=== PATIENT | female | born 1945 | race Caucasian/White ===

== ENCOUNTER 2018-02-03 01:58 | Outpatient (CLI) | payer MEDICARE, SELFPAY ==
[2018-02-03 09:44] LABS: ALT 32 U/L (12-78); AST 26 U/L (15-37); Alkaline Phosphatase 103 U/L (46-116); Anion Gap 7.7 mmol/L (3-11); BUN 8 mg/dL (7-18); Bilirubin, Total 1.5 mg/dL (0.2-1.0); CO2 29.3 mmol/L (21.0-32.0); CREATININE 0.72 mg/dL (0.55-1.02); Calcium 9.2 mg/dL (8.5-10.1); Chloride 98 mmol/L (98-107); Cholesterol 147 mg/dL (50-200); Glucose 92 mg/dL (70-100); HDL Cholesterol 72 mg/dL (40-60); LDL CHOLESTEROL 67 mg/dL (<100); Potassium 4.5 mmol/L (3.5-5.1); Sodium 135 mmol/L (136-145); Total Protein 7.3 g/dL (6.4-8.2); Triglyceride 50 mg/dL (30-150)
[2018-02-03 10:09] LABS: FREE T4 1.72 ng/dL (0.76-1.46)
== END 2018-02-03 02:18 ==
PROVIDERS: PCP Family Medicine; Visit Provider Family Medicine
DX: E78.5 Hyperlipidemia, unspecified (principal); E03.9 Hypothyroidism, unspecified
CPT/HCPCS: 36415; 80053; 80061; 83721; 84439; 84443

== ENCOUNTER 2018-03-18 12:11 | Outpatient (CLI) | payer MEDICARE, SELFPAY ==
[2018-03-18 14:30] LABS: ALT 40 U/L (12-78); AST 32 U/L (15-37); Albumin 4.2 g/dL (3.4-5.0); Alkaline Phosphatase 105 U/L (46-116); BUN 10 mg/dL (7-18); Bilirubin, Total 1.2 mg/dL (0.2-1.0); CREATININE 0.64 mg/dL (0.55-1.02); Calcium 9.2 mg/dL (8.5-10.1); Chloride 93 mmol/L (98-107); Glucose 91 mg/dL (70-100); Potassium 4.1 mmol/L (3.5-5.1); Sodium 130 mmol/L (136-145); TSH (W/Ref FT4) 14.77 uIU/mL (0.358-3.74); Total Protein 7.5 g/dL (6.4-8.2)
[2018-03-18 14:47] LABS: FREE T4 1.01 ng/dL (0.76-1.46)
== END 2018-03-18 12:31 ==
PROVIDERS: PCP Family Medicine; Visit Provider Family Medicine
DX: E78.5 Hyperlipidemia, unspecified (principal); E03.9 Hypothyroidism, unspecified
CPT/HCPCS: 36415; 80053; 84439; 84443

== ENCOUNTER 2018-05-25 00:28 | Outpatient (CLI) | payer MEDICARE, SELFPAY ==
--- NOTE | 2018-05-25 13:00 | DI.MAMMO_ITS ---
SYMPTOMS/DIAGNOSIS: SCREENING, Z12.31 MAMMOGRAM: Mammograms were interpreted according to the usual protocol including computer analysis with CAD system, tomosynthesis and C view imaging. Comparison is made with exams from 2014 through 2018. There has been decrease in breast size due to weight loss. The breasts are composed of heterogeneously dense fibroglandular tissue, breast density Category C. Biopsy marker clips are again noted in the upper subareolar region of the left breast. Scattered benign calcifications and bilateral stable circumscribed nodules are again noted. No suspicious masses or suspicious microcalcifications are seen. IMPRESSION: Category 2 C, negative mammogram with benign findings. Yearly screening mammography is recommended. SA ASSESSMENT OF FINDINGS: Negative with benign findings. Category 2. Patient will receive a letter notifying them of these results. Bi-RADS category C. The breasts are heterogeneously dense, which may obscure small masses.
== END 2018-05-25 00:48 ==
PROVIDERS: PCP Family Medicine; Visit Provider Family Medicine
DX: Z12.31 Encounter for screening mammogram for malignant neoplasm of breast (principal); N60.81 Other benign mammary dysplasias of right breast; N60.82 Other benign mammary dysplasias of left breast
CPT/HCPCS: 77063; 77067

== ENCOUNTER 2018-05-28 10:15 | Outpatient (CLI) | payer MEDICARE, SELFPAY ==
[2018-05-28 13:50] LABS: TSH (W/Ref FT4) 0.47 uIU/mL (0.358-3.74)
== END 2018-05-28 10:35 ==
PROVIDERS: PCP Family Medicine; Visit Provider Family Medicine
DX: E03.9 Hypothyroidism, unspecified (principal)
CPT/HCPCS: 36415; 84443

== ENCOUNTER 2018-08-07 00:25 | Outpatient (CLI) | payer MEDICARE, SELFPAY ==
--- NOTE | 2018-08-07 09:03 | DI.US_ITS ---
SYMPTOM/DIAGNOSIS: LT BREAST DENSE TISSUE, F/U ABNL MAMMO, R92.8 LEFT BREAST ULTRASOUND: Ultrasound examination was performed for evaluation of dense tissue. There is mild ductal prominence in the central portion of the breast. There is no discrete mass or cyst identified. CONCLUSION: Negative breast ultrasound.
== END 2018-08-07 00:45 ==
PROVIDERS: PCP Family Medicine; Visit Provider Family Medicine
DX: Z12.31 Encounter for screening mammogram for malignant neoplasm of breast (principal); R92.8 Other abnormal and inconclusive findings on diagnostic imaging of breast; N60.42 Mammary duct ectasia of left breast
CPT/HCPCS: 76642

== ENCOUNTER 2019-04-12 07:05 | Outpatient (CLI) | payer MEDICARE, SELFPAY ==
[2019-04-12 08:40] LABS: ALT 34 U/L (14-59); AST 31 U/L (15-37); Albumin 3.8 g/dL (3.4-5.0); Alkaline Phosphatase 121 U/L (46-116); BUN 9 mg/dL (7-18); Bilirubin, Total 0.9 mg/dL (0.2-1.0); CREATININE 0.61 mg/dL (0.55-1.02); Calculated LDL 71 mg/dL; Chloride 98 mmol/L (98-107); Cholesterol 149 mg/dL (<200); Glucose 90 mg/dL (74-106); HDL Cholesterol 70 mg/dL (40-60); Potassium 4.3 mmol/L (3.5-5.1); Sodium 135 mmol/L (136-145); TSH (W/Ref FT4) 0.39 uIU/mL (0.36-3.74); Triglyceride 44 mg/dL (<150)
== END 2019-04-12 07:25 ==
PROVIDERS: PCP Family Medicine; Visit Provider Family Medicine
DX: I10 Essential (primary) hypertension (principal); E03.9 Hypothyroidism, unspecified; E78.00 Pure hypercholesterolemia, unspecified
CPT/HCPCS: 36415; 80053; 80061; 84443

== ENCOUNTER 2019-05-31 01:35 | Outpatient (CLI) | payer MEDICARE, SELFPAY ==
--- NOTE | 2019-05-31 15:20 | DI.MAMMO_ITS ---
EXAM: MG MAMMO SCREENING CLINICAL HISTORY: screening, Z12.39. TECHNIQUE: Bilateral full field digital CC and MLO mammographic images were obtained with 3D tomosyn thesis and utilizing computer aided detection (CAD). COMPARISON: Available for comparison. FINDINGS: Masses/Architectural Distortion: There are scattered nodules in the breasts. There are nodular densi ties seen in the in the upper right breast on the mediolateral oblique view. This area should be fur ther evaluated with a spot compression view. Biopsy clips are again seen in the left breast. Microcalcifications: No suspicious pleomorphic-type are seen. Skin Thickening/Nipple Retraction: None. IMPRESSION: 1. Asymmetric densities in the upper right breast on the mediolateral oblique view. 2. This area should be further evaluated with a spot compression view. Ultrasound may be indicated a t that time. BI-RADS Cat 0 - Assessment Incomplete: Need additional imaging evaluation Breast Density - Category C - Heterogeneously dense The mammogram demonstrates the patient's breast tissue is dense. Dense breast tissue is very common a nd is not abnormal but dense breast tissue can make it harder to find cancer on a mammogram. Also, de nse breast tissue may increase their breast cancer risk. This information about the result of the [facility] mogram report was provided to the patient to raise their awareness. Use this report when you speak wi th the patient about their risks for breast cancer, which includes their family history. At that time , you may recommend for more screening tests (Ultrasound or MRI) as they might be useful based on the ir risk. A negative radiographic report should not delay biopsy if a dominant or clinically suspicious mass is present. Up to ten percent of cancers are not identified on mammography. A negative report may reinforce clinical impression. Adenosis and dense breasts may obscure an underlying neoplasm. False positive reports average 6 to 10%. Patient will receive a letter notifying them of these results.
== END 2019-05-31 01:55 ==
PROVIDERS: PCP Family Medicine; Visit Provider Family Medicine
DX: Z12.31 Encounter for screening mammogram for malignant neoplasm of breast (principal); R92.8 Other abnormal and inconclusive findings on diagnostic imaging of breast
CPT/HCPCS: 77063; 77067

== ENCOUNTER 2019-06-02 14:19 | Outpatient (CLI) | payer MEDICARE, SELFPAY ==
--- NOTE | 2019-06-02 13:54 | DI.US_ITS ---
EXAM: MG MAMMO SCREEN CALL BACK UNI AND US BREAST RT LIMITED CLINICAL HISTORY: F/U MAMMO, NODULAR DENSITIES RT UPPER BREAST ON MLO VIEW. TECHNIQUE: Craniocaudal and mediolateral oblique Full Field Digital Mammography views of the right b reast with Computer Aided Diagnosis followed by Tomosynthesis and right breast ultrasound. COMPARISON: Priors available for comparison FINDINGS: Mammography/Tomosynthesis: Masses/Architectural Distortion: There is a persistent well-circumscribed ovoid density in the upper right breast. Microcalcifictions: No suspicious pleomorphic-type are seen. Skin Thickening/Nipple Retraction: None. Right breast US: Echotexture: Normal appearance of the glandular tissue. Shadowing: No suspicious foci. Cyst: None. Solid lesions: Well-circumscribed radially oriented hypoechoic nodule at the 11 o'clock position 8 ce ntimeters from the nipple. This would appear to correspond to the mammographic abnormality. Sonogra phically, its appearance is suggestive of an intraparenchymal lymph node. Ductal dilation: None. IMPRESSION: 1. No evidence of malignancy is noted. 2. A six-month follow-up right mammogram is recommended for re-evaluation. BI-RADS Cat 3 - 6 month - Probably Benign Finding: Recommend follow-up mammography in 6 months Breast Density - Category C - Heterogeneously dense The findings were discussed with the patient on the date of the examination. The mammogram demonstrates the patient's breast tissue is dense. Dense breast tissue is very common a nd is not abnormal but dense breast tissue can make it harder to find cancer on a mammogram. Also, de nse breast tissue may increase their breast cancer risk. This information about the result of the [facility] mogram report was provided to the patient to raise their awareness. Use this report when you speak wi th the patient about their risks for breast cancer, which includes their family history. At that time , you may recommend for more screening tests (Ultrasound or MRI) as they might be useful based on the ir risk. A negative radiographic report should not delay biopsy if a dominant or clinically suspicious mass is present. Up to ten percent of cancers are not identified on mammography. A negative report may reinforce clinical impression. Adenosis and dense breasts may obscure an underlying neoplasm. False positive reports average 6 to 10%. Patient will receive a letter notifying them of these results.
== END 2019-06-02 14:39 ==
PROVIDERS: PCP Family Medicine; Visit Provider Family Medicine
DX: Z12.31 Encounter for screening mammogram for malignant neoplasm of breast (principal); R92.8 Other abnormal and inconclusive findings on diagnostic imaging of breast; N63.11 Unspecified lump in the right breast, upper outer quadrant; R59.0 Localized enlarged lymph nodes
CPT/HCPCS: 76642; 77063; 77067

== ENCOUNTER 2019-12-02 01:18 | Outpatient (CLI) | payer MEDICARE, SELFPAY ==
--- NOTE | 2019-12-02 | DI.MAMMO_ITS ---
EXAM: MG MAMMO DIAGNOSTIC UNI CLINICAL HISTORY: F/U ABNL MAMMO, 6 MO F/U R92.8 TECHNIQUE: Mammograms were interpreted according to the usual protocol including computer analysis w [employer] CAD system, tomosynthesis and C-view imaging. COMPARISON: FINDINGS: Today's right breast mammogram was obtained to follow nodular densities of the upper right breast see n prior examination May 2019. Findings are less prominent today's examination. No new mass or clumped microcalcification seen. IMPRESSION: No specific evidence of malignancy at this time. I would suggest that routine screening examinations resume with a bilateral mammogram in 6 months. BI-RADS Cat 3 - 6 month - Probably Benign Finding: Recommend follow-up mammography in 6 months: Breast Density - Category C - Heterogeneously dense:
== END 2019-12-02 01:38 ==
PROVIDERS: PCP Family Medicine; Visit Provider Family Medicine
DX: Z12.31 Encounter for screening mammogram for malignant neoplasm of breast (principal); R92.8 Other abnormal and inconclusive findings on diagnostic imaging of breast; R92.2 Inconclusive mammogram
CPT/HCPCS: 77061; 77065; G0279

== ENCOUNTER 2019-12-23 02:28 | Outpatient (CLI) | payer MEDICARE, SELFPAY ==
--- NOTE | 2019-12-23 07:15 | DI.DEXA_ITS ---
EXAM: XR DEXA BONE DENSITY W/WO KUSHAL CLINICAL HISTORY: osteoporosis,M81.0 TECHNIQUE: COMPARISON: No exams were available for comparison FINDINGS: DEXA scan was performed according to the usual protocol without lumbar spine scan as multiple lumbar vertebrae were excluded Lateral vertebral scanogram shows mild anterior wedging of multiple thoracic vertebral bodies. Left hip scanning shows T-score -1.9 with left femoral neck T-score -2.6. Prior scan of September 14 0 6 s howed left hip T-score 0.3. Left forearm scanning shows T-score -3.7. IMPRESSION: Findings consistent with osteoporosis according to the WHO criteria. Multiple deformed thoracic vert ebrae noted consistent with slight anterior compression fractures. RADIATION DOSE DELIVERED: Total DLP
== END 2019-12-23 02:48 ==
PROVIDERS: PCP Family Medicine; Visit Provider Family Medicine
DX: M85.832 Other specified disorders of bone density and structure, left forearm (principal); M85.88 Other specified disorders of bone density and structure, other site
CPT/HCPCS: 77080

== ENCOUNTER 2020-04-14 02:13 | Outpatient (CLI) | payer MEDICARE, SELFPAY ==
[2020-04-14 08:44] LABS: ALT 30 U/L (14-59); AST 27 U/L (15-37); Albumin 4.2 g/dL (3.4-5.0); Alkaline Phosphatase 99 U/L (46-116); Anion Gap 5.7 mmol/L (3-11); BUN 12 mg/dL (7-18); Bilirubin, Total 1.8 mg/dL (0.2-1.0); CO2 29.3 mmol/L (21.0-32.0); CREATININE 0.74 mg/dL (0.55-1.02); Calcium 9.2 mg/dL (8.5-10.1); Calculated LDL 72 mg/dL (<100); Chloride 98 mmol/L (98-107); Cholesterol 160 mg/dL (<200); Glucose 90 mg/dL (74-106); HDL Cholesterol 79 mg/dL (40-60); Potassium 4.1 mmol/L (3.5-5.1); Sodium 133 mmol/L (136-145); TSH (W/Ref FT4) 0.42 uIU/mL (0.36-3.74); Total Protein 7.9 g/dL (6.4-8.2); Triglyceride 47 mg/dL (<150)
== END 2020-04-14 02:33 ==
PROVIDERS: PCP Family Medicine; Visit Provider Family Medicine
DX: E03.9 Hypothyroidism, unspecified (principal); I10 Essential (primary) hypertension; E78.5 Hyperlipidemia, unspecified
CPT/HCPCS: 36415; 80053; 80061; 84443

== ENCOUNTER 2020-06-01 00:43 | Outpatient (CLI) | payer MEDICARE, SELFPAY ==
--- NOTE | 2020-06-01 13:17 | DI.MAMMO_ITS ---
EXAM: MG MAMMO SCREENING CLINICAL HISTORY: screening,Z12.39 TECHNIQUE: Bilateral full field digital CC and MLO mammographic images were obtained with 3D tomosyn thesis and utilizing computer aided detection (CAD). COMPARISON: Available for comparison. FINDINGS: Masses/Architectural Distortion: There appears to be a new ovoid density in the superior left breast on the MLO view. There are stable bilateral nodular opacities within both breasts. Microcalcifications: No suspicious pleomorphic-type are seen. There again seen left breast biopsy cli ps. Skin Thickening/Nipple Retraction: None. IMPRESSION: 1. New ovoid density in the superior left breast on the MLO view. 2. Spot compression views requested for further evaluation. Ultrasound may be indicated at that time . BI-RADS Category 0 - Assessment Incomplete: Need additional imaging evaluation Breast Density - Category C - Heterogeneously dense Breast density category C or D implies that the patient has dense breast tissue. Dense breast tissue is very common and is not abnormal but dense breast tissue can make it harder to find cancer on a ma mmogram. Also, dense breast tissue may increase their breast cancer risk. This information about the result of the mammogram report was provided to the patient to raise their awareness. Use this report when you speak with the patient about their risks for breast cancer, which includes their family hist ory. At that time, you may recommend for more screening tests (Ultrasound or MRI) as they might be us eful based on their risk. A negative radiographic report should not delay biopsy if a dominant or clinically suspicious mass is present. Up to ten percent of cancers are not identified on mammography. A negative report may reinforce clinical impression. Adenosis and dense breasts may obscure an underlying neoplasm. False positive reports average 6 to 10%. Patient will receive a letter notifying them of these results.
== END 2020-06-01 00:44 | disposition home or self-care (01) ==
LOC: DI 00:43
PROVIDERS: PCP Family Medicine; Visit Provider Family Medicine
DX: Z12.31 Encounter for screening mammogram for malignant neoplasm of breast (principal); R92.8 Other abnormal and inconclusive findings on diagnostic imaging of breast
CPT/HCPCS: 77063; 77067

== ENCOUNTER 2020-06-08 01:17 | Outpatient (CLI) | payer MEDICARE, SELFPAY ==
--- NOTE | 2020-06-08 14:34 | DI.MAMMO_ITS ---
EXAM: MG MAMMO SCREEN CALL BACK UNI CLINICAL HISTORY: F/U MAMMO, NEW OVOID DENSITY SUPERIOR LT BREAST ON MLO VIEW TECHNIQUE: Spot compression views and tomographic imaging were performed of the superior left breast in the MLO projection. COMPARISON: 01 June 2020 and exams back to 2010 FINDINGS: The left breast are composed of scattered fibroglandular densities, Breast Density category B. No suspicious masses or suspicious microcalcifications are seen. No persistent abnormality is seen on the additional views performed. The findings are consistent wit h overlying fibroglandular tissue. Biopsy marker clips in benign calcifications are again noted. There has been no significant change from prior exams. IMPRESSION: BI-RADS Category 2 - Benign Findings Yearly screening mammography is recommended. Breast Density - Category B, scattered fibroglandular densities.
== END 2020-06-08 01:18 ==
LOC: DI 01:17
PROVIDERS: PCP Family Medicine; Visit Provider Family Medicine
DX: R92.8 Other abnormal and inconclusive findings on diagnostic imaging of breast (principal)
CPT/HCPCS: 77063; 77067

== ENCOUNTER 2020-10-10 02:43 | Outpatient (CLI) | payer MEDICARE, SELFPAY ==
[2020-10-10 08:18] LABS: ALT 33 U/L (14-59); AST 23 U/L (15-37); Albumin 3.9 g/dL (3.4-5.0); Alkaline Phosphatase 118 U/L (46-116); Anion Gap 8.5 mmol/L (3-11); BUN 6 mg/dL (7-18); Bilirubin, Total 1.5 mg/dL (0.2-1.0); CO2 27.5 mmol/L (21.0-32.0); CREATININE 0.6 mg/dL (0.55-1.02); Calcium 9.4 mg/dL (8.5-10.1); Calculated LDL 70 mg/dL (<100); Chloride 98 mmol/L (98-107); Cholesterol 163 mg/dL (<200); Glucose 97 mg/dL (74-106); HDL Cholesterol 82 mg/dL (40-60); Potassium 4.5 mmol/L (3.5-5.1); Sodium 134 mmol/L (136-145); Total Protein 7.5 g/dL (6.4-8.2); Triglyceride 58 mg/dL (<150)
[2020-10-10 08:37] LABS: FREE T4 1.92 ng/dL (0.76-1.46)
== END 2020-10-10 02:44 | disposition home or self-care (01) ==
LOC: LBO 02:43
PROVIDERS: PCP Family Medicine; Visit Provider Family Medicine
DX: E03.9 Hypothyroidism, unspecified (principal); E78.5 Hyperlipidemia, unspecified; I10 Essential (primary) hypertension
CPT/HCPCS: 36415; 80053; 80061; 84439; 84443

== ENCOUNTER 2020-12-07 04:31 | Outpatient (CLI) | payer MEDICARE, SELFPAY ==
[2020-12-07 12:28] LABS: TSH (W/Ref FT4) 0.51 uIU/mL (0.36-3.74)
== END 2020-12-07 04:32 | disposition home or self-care (01) ==
LOC: LBO 04:31
PROVIDERS: PCP Family Medicine; Visit Provider Family Medicine
DX: E03.9 Hypothyroidism, unspecified (principal); I10 Essential (primary) hypertension
CPT/HCPCS: 36415; 84443

== ENCOUNTER 2021-04-20 02:00 | Outpatient (CLI) | payer MEDICARE, SELFPAY ==
[2021-04-20 10:33] LABS: Source Nasal/Nares
[2021-04-21 12:57] LABS: COVID-19 PCR Negative (Negative)
== END 2021-04-20 02:01 | disposition home or self-care (01) ==
LOC: LBO 02:00
PROVIDERS: PCP Family Medicine; Visit Provider Surgery
DX: Z20.822 Contact with and (suspected) exposure to COVID-19 (principal); Z01.818 Encounter for other preprocedural examination
CPT/HCPCS: 87635

== ENCOUNTER 2021-05-28 01:48 | Outpatient (CLI) | payer MEDICARE, SELFPAY ==
[2021-05-28 09:27] LABS: ALT 28 U/L (14-59); AST 26 U/L (15-37); Albumin 3.9 g/dL (3.4-5.0); Alkaline Phosphatase 95 U/L (46-116); Anion Gap 7.6 mmol/L (3-11); BUN 14 mg/dL (7-18); Bilirubin, Total 1.8 mg/dL (0.2-1.0); CO2 29.4 mmol/L (21.0-32.0); CREATININE 0.8 mg/dL (0.55-1.02); Calcium 9.2 mg/dL (8.5-10.1); Calculated LDL 86 mg/dL (<100); Chloride 101 mmol/L (98-107); Cholesterol 183 mg/dL (<200); Glucose 95 mg/dL (74-106); HDL Cholesterol 83 mg/dL (40-60); Potassium 3.8 mmol/L (3.5-5.1); Sodium 138 mmol/L (136-145); TSH (W/Ref FT4) 0.38 uIU/mL (0.36-3.74); Total Protein 7.3 g/dL (6.4-8.2); Triglyceride 70 mg/dL (<150)
== END 2021-05-28 01:49 | disposition home or self-care (01) ==
LOC: LBO 01:48
PROVIDERS: PCP Family Medicine; Visit Provider Family Medicine
DX: E03.9 Hypothyroidism, unspecified (principal); E78.5 Hyperlipidemia, unspecified; I10 Essential (primary) hypertension
CPT/HCPCS: 36415; 80053; 80061; 84443

== ENCOUNTER 2021-07-25 01:48 | Outpatient (CLI) | payer MEDICARE, SELFPAY ==
--- NOTE | 2021-07-25 07:15 | DI.MAMMO_ITS ---
Exam(s) MAMMO SCREENING EXAM: MAMMO SCREENING CLINICAL HISTORY: screening Z12.39 FOR BREAST CANCER TECHNIQUE: Mammograms were interpreted according to the usual protocol including computer analysis w [employer] CAD system, tomosynthesis and C-view imaging. COMPARISON: FINDINGS: Safia renee mammogram July 25 the breasts are of moderate density with fairly symmetrical distribut ion of fibroglandular tissue. No dominant mass or clumped microcalcification is identified in either breast. The current examination is compared with previous examinations including May 2020 and there has been no gross interval change in appearance in comparison with the prior studies. IMPRESSION: No specific evidence of malignancy at this time. Routine screening examinations are suggested at yea rly intervals due to the family history of breast carcinoma. BI-RADS Category 1 - Negative Breast Density - Category B - Scattered areas of fibroglandular density
== END 2021-07-25 02:08 ==
PROVIDERS: PCP Family Medicine; Visit Provider Family Medicine
DX: Z12.31 Encounter for screening mammogram for malignant neoplasm of breast (principal)
CPT/HCPCS: 77063; 77067

== ENCOUNTER 2021-10-08 04:08 | Outpatient (CLI) | payer MEDICARE, SELFPAY ==
[2021-10-08 15:21] LABS: TSH (W/Ref FT4) 0.57 uIU/mL (0.36-3.74)
== END 2021-10-08 04:09 | disposition home or self-care (01) ==
LOC: LBO 04:09
PROVIDERS: PCP Family Medicine; Visit Provider Family Medicine
DX: E03.9 Hypothyroidism, unspecified (principal)
CPT/HCPCS: 36415; 84443

== ENCOUNTER 2022-06-17 02:46 | Outpatient (CLI) | payer MEDICARE, SELFPAY ==
[2022-06-17 08:27] LABS: ALT 25 U/L (14-59); AST 29 U/L (15-37); Albumin 3.9 g/dL (3.4-5.0); Alkaline Phosphatase 107 U/L (46-116); Anion Gap 8.9 mmol/L (3-11); BUN 16 mg/dL (7-18); Bilirubin, Total 1.1 mg/dL (0.2-1.0); CO2 29.1 mmol/L (21.0-32.0); CREATININE 0.7 mg/dL (0.55-1.02); Calcium 9.5 mg/dL (8.5-10.1); Calculated LDL 89 mg/dL (<100); Chloride 102 mmol/L (98-107); Cholesterol 193 mg/dL (<200); Glucose 96 mg/dL (74-106); HDL Cholesterol 91 mg/dL (40-60); Potassium 3.7 mmol/L (3.5-5.1); Sodium 140 mmol/L (136-145); TSH (W/Ref FT4) 2.02 uIU/mL (0.36-3.74); Total Protein 7.6 g/dL (6.4-8.2); Triglyceride 66 mg/dL (<150)
== END 2022-06-17 02:47 | disposition home or self-care (01) ==
LOC: LBO 02:46
PROVIDERS: PCP Family Medicine; Visit Provider Family Medicine
DX: E03.9 Hypothyroidism, unspecified (principal); E78.5 Hyperlipidemia, unspecified; I10 Essential (primary) hypertension
CPT/HCPCS: 36415; 80053; 80061; 84443

== ENCOUNTER 2022-07-31 01:13 | Outpatient (CLI) | payer MEDICARE, SELFPAY ==
--- NOTE | 2022-07-31 11:50 | DI.MAMMO_ITS ---
Exam(s) MAMMO SCREENING EXAM: MAMMO SCREENING CLINICAL HISTORY: screening,z12.39 TECHNIQUE: Mammograms were interpreted according to the usual protocol including computer analysis w [employer] CAD system, tomosynthesis and C-view imaging. COMPARISON: 2012 through 2021 FINDINGS: The breasts are composed of scattered fibroglandular densities, Breast Density category B. No suspicious masses or suspicious microcalcifications are seen. Biopsy marker clips again noted in subareolar left breast. Scattered benign calcifications bilaterally. No skin thickening or abnormal axillary lymph nodes are seen. There has been no significant change from prior exams. IMPRESSION: BI-RADS Category 1, Negative mammogram Yearly screening mammography is recommended. Breast Density - Category B, scattered fibroglandular densities. A negative radiographic report should not delay biopsy if a dominant or clinically suspicious mass is present. Up to ten percent of cancers are not identified on mammography. A negative report may reinforce clinical impression. Adenosis and dense breasts may obscure an underlying neoplasm. False positive reports average 6 to 10%. Patient will receive a letter notifying them of these results.
== END 2022-07-31 01:33 ==
LOC: DI 01:14
PROVIDERS: PCP Family Medicine; Visit Provider Family Medicine
DX: Z12.31 Encounter for screening mammogram for malignant neoplasm of breast (principal)
CPT/HCPCS: 77063; 77067

== ENCOUNTER 2023-01-31 16:59 | Outpatient (REF) | payer MEDICARE, SELFPAY ==
[2023-01-31 14:55] LABS: Source Nasal/Nares
[2023-01-31 15:31] LABS: COVID-19 PCR Negative (Negative)
== END 2023-01-31 17:00 | disposition home or self-care (01) ==
LOC: LBN 16:59
PROVIDERS: PCP Family Medicine; Visit Provider Physician Assistant Medical
DX: Z20.822 Contact with and (suspected) exposure to COVID-19 (principal); J34.89 Other specified disorders of nose and nasal sinuses
CPT/HCPCS: 87635

== ENCOUNTER 2023-05-15 04:15 | Outpatient (CLI) | payer MEDICARE, SELFPAY ==
[2023-05-15 08:50] LABS: ALT 30 U/L (14-59); AST 23 U/L (15-37); Albumin 4.1 g/dL (3.4-5.0); Alkaline Phosphatase 108 U/L (46-116); Anion Gap 7.5 mmol/L (3-11); BUN 15 mg/dL (7-18); Bilirubin, Total 0.9 mg/dL (0.2-1.0); CO2 28.5 mmol/L (21.0-32.0); CREATININE 0.7 mg/dL (0.55-1.02); Calcium 9.6 mg/dL (8.5-10.1); Calculated LDL 101 mg/dL (<100); Chloride 100 mmol/L (98-107); Cholesterol 207 mg/dL (<200); Estimated GFR 90.14 (mL/min/1.73m2); Glucose 100 mg/dL (74-106); HDL Cholesterol 90 mg/dL (40-60); Potassium 3.5 mmol/L (3.5-5.1); Sodium 136 mmol/L (136-145); TSH (W/Ref FT4) 1.13 uIU/mL (0.36-3.74); Total Protein 8.1 g/dL (6.4-8.2); Triglyceride 84 mg/dL (<150)
== END 2023-05-15 04:16 | disposition home or self-care (01) ==
LOC: LBO 04:15
PROVIDERS: PCP Family Medicine; Visit Provider Family Medicine
DX: I10 Essential (primary) hypertension (principal); E03.9 Hypothyroidism, unspecified
CPT/HCPCS: 36415; 80053; 80061; 84443

== ENCOUNTER 2024-01-22 15:35 | Outpatient (REF) | payer MEDICARE, SELFPAY ==
[2024-01-22 14:52] LABS: Source Nasal/Nares
[2024-01-22 16:34] LABS: COVID-19 PCR Negative (Negative)
== END 2024-01-22 15:36 | disposition home or self-care (01) ==
LOC: LBN 15:35
PROVIDERS: PCP Family Medicine; Visit Provider Physician Assistant Medical
DX: J06.9 Acute upper respiratory infection, unspecified (principal)
CPT/HCPCS: 87635

== ENCOUNTER 2024-01-27 11:26 | Outpatient (CLI) | payer MEDICARE, SELFPAY ==
[2024-01-27 12:42] LABS: Hemoglobin A1C 5.6 % (<5.7)
[2024-01-27 13:16] LABS: ALT 21 U/L (14-59); AST 18 U/L (15-37); Albumin 3.8 g/dL (3.4-5.0); Alkaline Phosphatase 108 U/L (46-116); Anion Gap 9.4 mmol/L (3-11); BUN 17 mg/dL (7-18); Bilirubin, Total 0.71 mg/dL (0.2-1.0); CO2 26.6 mmol/L (21.0-32.0); CREATININE 0.8 mg/dL (0.55-1.02); Calcium 9.7 mg/dL (8.5-10.1); Calculated LDL 76 mg/dL (<100); Chloride 103 mmol/L (98-107); Cholesterol 181 mg/dL (<200); Estimated GFR 76.31 (mL/min/1.73m2); Glucose 121 mg/dL (74-106); HDL Cholesterol 73 mg/dL (40-60); Potassium 3.9 mmol/L (3.5-5.1); Sodium 139 mmol/L (136-145); TSH (W/Ref FT4) 0.43 uIU/mL (0.36-3.74); Total Protein 7.6 g/dL (6.4-8.2); Triglyceride 161 mg/dL (<150)
[2024-01-27 13:17] LABS: Vitamin B12 > 2000 pg/mL (193-986)
== END 2024-01-27 11:27 | disposition home or self-care (01) ==
LOC: LOS 11:26
PROVIDERS: PCP Family Medicine; Referring Provider Family Medicine; Visit Provider Family Medicine
DX: E03.9 Hypothyroidism, unspecified (principal); I10 Essential (primary) hypertension; R41.3 Other amnesia; E11.9 Type 2 diabetes mellitus without complications; Z01.30 Encounter for examination of blood pressure without abnormal findings
CPT/HCPCS: 36415; 80053; 80061; 82607; 83036; 84443

== ENCOUNTER 2024-02-24 00:46 | Outpatient (CLI) | payer MEDICARE, SELFPAY ==
--- NOTE | 2024-02-24 06:45 | DI.MRI_ITS ---
Exam(s) MR BRAIN WO EXAM: MR BRAIN WO CLINICAL HISTORY: memory changes,r41.3 TECHNIQUE: Multiplanar multisequence MRI of the brain was performed. COMPARISON: No exams were available for comparison FINDINGS: VENTRICLES AND EXTRA AXIAL SPACES: Normal in size and morphology for the degree of atrophy. MIDLINE SHIFT: None. CEREBRAL PARENCHYMA: No focus of restricted diffusion to suggest acute infarct. No space-occupying le matias identified. Moderate atrophy. Mild to moderate scattered foci of high signal in the white erika er consistent with sequela of chronic microvascular disease. BRAINSTEM/CEREBELLUM: Normal. VISUALIZED PARANASAL SINUSES: Clear. MASTOIDS:Clear. Vasculature: Normal flow void. PITUITARY GLAND: Unremarkable. ORBITS: Unremarkable. IMPRESSION: Moderate atrophy and white matter changes consistent with microvascular disease. No acute abnormalit y. DATA REPOSITORY:
== END 2024-02-24 01:06 ==
LOC: DI 00:46
PROVIDERS: PCP Family Medicine; Visit Provider Family Medicine
DX: R41.3 Other amnesia (principal)
CPT/HCPCS: 70551

== ENCOUNTER 2024-04-05 17:22 | Outpatient (REF) | payer MEDICARE, SELFPAY ==
[2024-04-05 15:27] LABS: Source Nasal/Nares
[2024-04-05 16:23] LABS: COVID-19 PCR Negative (Negative)
== END 2024-04-05 17:23 | disposition home or self-care (01) ==
LOC: LBN 17:22
PROVIDERS: PCP Family Medicine; Visit Provider Nurse Practitioner Family
DX: Z20.822 Contact with and (suspected) exposure to COVID-19 (principal)
CPT/HCPCS: 87635

== ENCOUNTER 2024-10-12 01:29 | Outpatient (CLI) | payer MEDICARE, SELFPAY ==
--- NOTE | 2024-10-12 07:15 | DI.DEXA_ITS ---
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 No compression deformities identified. There is exaggeration of the thoracic kyphosis. Left hip: Total T-Score: -1.5. This compares to -1.9 on the prior examination. Total Z-Score: 0.4 T- and Z-scores: There is a T-score of -3.1 in the femoral neck consistent with osteoporosis. Lumbar Spine: Total T-Score: -0.7. This compares to 0.0 from the examination from 2005. Total Z-Score: 1.8 T- and Z-scores: Within normal limits. There is osteoporosis in the left forearm with a total T-score of -4.2 and a Z- score of -1.5. IMPRESSION: Osteoporosis in the femoral neck and the left forearm.
== END 2024-10-12 01:49 ==
LOC: DI 01:30
PROVIDERS: PCP Family Medicine; Visit Provider Family Medicine
DX: M81.0 Age-related osteoporosis without current pathological fracture (principal); Z78.0 Asymptomatic menopausal state
CPT/HCPCS: 77080

== ENCOUNTER 2024-11-19 00:33 | Outpatient (RCR) | payer MEDICARE, SELFPAY ==
[2024-11-19] MEDS: Denosumab 60 MG/ML SYR SC (13:21)
== END 2024-11-25 23:59 | disposition home or self-care (01) ==
LOC: INF 00:33
PROVIDERS: PCP Family Medicine; Visit Provider Family Medicine
DX: M81.0 Age-related osteoporosis without current pathological fracture (principal)
CPT/HCPCS: 96372; J0897

== ENCOUNTER 2024-11-24 04:00 | Outpatient (CLI) | payer MEDICARE, SELFPAY ==
[2024-11-24 08:37] LABS: ALT 30 U/L (14-59); AST 22 U/L (15-37); Albumin 4.0 g/dL (3.4-5.0); Alkaline Phosphatase 101 U/L (46-116); Anion Gap 9.4 mmol/L (3-11); BUN 17 mg/dL (7-18); Bilirubin, Total 1.0 mg/dL (0.2-1.0); CO2 25.6 mmol/L (21.0-32.0); Calcium 9.1 mg/dL (8.5-10.1); Chloride 102 mmol/L (98-107); Estimated GFR 89.02 (mL/min/1.73m2); Glucose 92 mg/dL (74-106); Potassium 3.9 mmol/L (3.5-5.1); Sodium 137 mmol/L (136-145); TSH (W/Ref FT4) 0.73 uIU/mL (0.36-3.74); Total Protein 7.7 g/dL (6.4-8.2)
[2024-11-24 09:10] LABS: Vitamin D 25 Total 81 ng/mL (30-100)
== END 2024-11-24 04:01 | disposition home or self-care (01) ==
LOC: LBO 04:00
PROVIDERS: PCP Family Medicine; Visit Provider Family Medicine
DX: M81.0 Age-related osteoporosis without current pathological fracture (principal)
CPT/HCPCS: 36415; 80053; 82306; 83970; 84100; 84443

== ENCOUNTER 2024-11-25 17:53 | Outpatient (REF) | payer MEDICARE, SELFPAY ==
[2024-11-25 17:08] LABS: Creatinine,Urine 89.56 mg/dL
[2024-11-25 17:11] LABS: Creatinine,24hr Ur 0.90 g/24hr (0.60-1.80); Total Volume 1000 ml
[2024-11-26 09:45] LABS: Calcium Urine 6.8 mg/dL (See Note); Timed Urine Volume 1000 mL
== END 2024-11-25 17:54 | disposition home or self-care (01) ==
LOC: LBN 17:53
PROVIDERS: PCP Family Medicine; Visit Provider Family Medicine
DX: M81.0 Age-related osteoporosis without current pathological fracture (principal)
CPT/HCPCS: 81050; 82340; 82570

== ENCOUNTER 2025-02-02 01:08 | Outpatient (CLI) | payer MEDICARE, SELFPAY ==
[2025-02-02 10:58] LABS: Vitamin B12 > 2000 pg/mL (193-986)
== END 2025-02-02 01:09 | disposition home or self-care (01) ==
LOC: LBO 01:08
PROVIDERS: PCP Family Medicine; Visit Provider Family Medicine
DX: R41.3 Other amnesia (principal)
CPT/HCPCS: 36415; 82607